=== PATIENT | female | born 1945 | race Caucasian/White ===

== ENCOUNTER → 2016-09-06 | Outpatient (CLI) | payer OTHER ==
[~2016-09-06] MED LIST: AMITRIPTYLINE H10 M1 PO; ASPIRIN EC81 M1 PO; ATELVIA35 MG PO; CALCIUM OYSTER500 MG PO; CELEBREX 200 M200 MG PO; CENTRUM SILVER1 EAC1 PO; CIPROFLOXACIN500 M1 PO; CITRUCEL500 MG PO; FISH OIL 1,0001 EAC5 PO; FLAX SEED OIL1000 MG PO; GLUCOSAMINE &1 EACH PO; HYDROCHLOROTH12.5 MG PO; LIPITOR40 MG PO; MAG-OX 400 TAB400 M1 PO; OMEPRAZOLE 20 M20 MG PO; VITAMIN D1000 UNI1 PO
== END ==
LOC: RAD 02:58
DX: Z12.31 Encounter for screening mammogram for malignant neoplasm of breast (principal)

== ENCOUNTER → 2017-10-13 | Outpatient (CLI) | payer OTHER | LOC: RAD 00:26 | DX: Z12.31 Encounter for screening mammogram for malignant neoplasm of breast (principal) ==

== ENCOUNTER → 2019-02-14 | Outpatient (CLI) | payer OTHER | LOC: RAD 02:54 | DX: Z12.31 Encounter for screening mammogram for malignant neoplasm of breast (principal) ==

== ENCOUNTER → 2020-02-28 | Outpatient (CLI) | payer OTHER | LOC: RAD 08:11 | PROVIDERS: ATTEND Family Medicine | DX: Z12.31 Encounter for screening mammogram for malignant neoplasm of breast (principal) ==